=== PATIENT | female | born 1985 | race Caucasian/White ===

== ENCOUNTER 2017-10-16 03:19 | Emergency (ER) | payer OTHER ==
[2017-10-16] MEDS ORDERED: DIAZEPAM 5 MG TAB ONE (03:33)
[2017-10-16] MEDS: DIAZEPAM 5 MG TAB PO ONE ×2 (03:35→03:39)
[2017-10-16] MEDS ORDERED: HYDROMORPHONE HCL 2 MG/ML SOL ONE (03:50)
[2017-10-16] MEDS: HYDROMORPHONE HCL 2 MG/ML SOL IM ONE (03:54)
[2017-10-16 04:05] VITALS: RESP 22
[2017-10-16 04:16] VITALS: TEMP 96.2
[2017-10-16 04:22] VITALS: BP 129/87; PULSE 96; O2SAT 98
== END 2017-10-16 04:29 | disposition home or self-care (01) | DRG 552 ==
LOC: ED 03:19
DX: M54.41 Lumbago with sciatica, right side (principal); G89.29 Other chronic pain
CPT/HCPCS: 96372; 99282; 99283; J1170; A9270-GY